=== PATIENT | male | born 2000 | race Asian ===

== ENCOUNTER → 2023-10-17 | Outpatient (CLI) | payer OTHER | LOC: M RAD 16:42 | PROVIDERS: ATTEND Pain Medicine Interventional Pain Medicine | DX: M47.817 Spondylosis without myelopathy or radiculopathy, lumbosacral region (principal); M51.26 Other intervertebral disc displacement, lumbar region ==

== ENCOUNTER → 2024-02-03 | Outpatient (CLI) | payer OTHER | LOC: M SOG 07:56 | PROVIDERS: ATTEND Physician Assistant | DX: M79.642 Pain in left hand (principal) ==

== ENCOUNTER 2024-04-29 22:16 | Emergency (ER) | payer OTHER ==
[~2024-04-29] VITALS: Ht 182.9 cm; Wt 77.1 kg
[2024-04-30] MEDS ORDERED: KETOROLAC 30 MG/ML 1ML VIAL IV ONE (00:40)
[2024-04-30] MEDS: KETOROLAC 60MG 2ML VIAL IM STA (00:48)
[2024-04-30] MEDS: UNRESOLVED CLARIFICATION ENTRY XX STA (00:52)
[2024-04-30] MEDS ORDERED: RALT40TA PO (01:14)
[2024-04-30 01:22] VITALS: BP 116/74; TEMP 97.6; O2SAT 98
== END 2024-04-30 01:23 | disposition home or self-care (01) ==
LOC: M ED 22:16
DX: S46.012A Strain of muscle(s) and tendon(s) of the rotator cuff of left shoulder, initial encounter (principal); M25.512 Pain in left shoulder; M25.511 Pain in right shoulder; X50.0XXA Overexertion from strenuous movement or load, initial encounter; Y92.9 Unspecified place or not applicable; Y93.89 Activity, other specified; Y99.1 Military activity
CPT/HCPCS: 73030; 96372; 99283; J1885